=== PATIENT | female | born 1940 | race Caucasian/White ===

== ENCOUNTER 2022-10-13 10:35 | Emergency (ER) | payer OTHER ==
[~2022-10-13] VITALS: Ht 152.4 cm; Wt 71.0 kg
[2022-10-13 11:00] VITALS: BP 149/82
[2022-10-13] MEDS ORDERED: HYDROcodone/acetaminophen 10/325mg tab PO ONE (14:05)
[2022-10-13] MEDS ORDERED: HYDR-3965 PO (16:05)
== END 2022-10-13 16:39 | disposition home or self-care (01) ==
LOC: ER 10:35
DX: M79.602 Pain in left arm (principal); W19.XXXA Unspecified fall, initial encounter; Y93.89 Activity, other specified; Y92.89 Other specified places as the place of occurrence of the external cause; Y99.8 Other external cause status
CPT/HCPCS: 73030; 73080; 73090; 99283; A4565